=== PATIENT | male | born 1975 | race African-American/Black ===

== ENCOUNTER 2017-06-20 10:07 | Emergency (ER) | payer SELFPAY ==
[2017-06-20] VITALS (12 sets, daily range): BP systolic 131–165; BP diastolic 77–102
[~2017-06-20] VITALS: Ht 177.8 cm; Wt 99.8 kg
[2017-06-20] MEDS ORDERED: UNOBMED (10:08)
[2017-06-20] MEDS ORDERED: LORazepam Inj 2mg/ml 1ml ONE (10:15)
[2017-06-20] MEDS ORDERED: LORazepam Inj 2mg/ml 1ml IM ONE (10:15)
[2017-06-20] MEDS ORDERED: Haloperidol 5mg/ml Inj ONE (10:49)
[2017-06-20] MEDS ORDERED: DiphenhydrAMINE 50mg/ml Inj ONE (10:49)
[2017-06-20] MEDS ORDERED: DiphenhydrAMINE 50mg/ml Inj IM ONE (11:00)
[2017-06-20] MEDS ORDERED: Haloperidol 5mg/ml Inj IM ONE (11:00)
[2017-06-20 11:50] LABS: BASOPHILS % (AUTO) 0.8 % (0.0-2.0); EOSINOPHILS % (AUTO) 0.1 % (0.0-3.0); LYMPHOCYTES % (AUTO) 8.2 % (20.0-45.0); MEAN CORPUSCULAR HEMOGLOBIN 30.6 PG (27.0-31.0); MEAN CORPUSCULAR HGB CONC 32.7 G/DL (32.0-36.0); MEAN CORPUSCULAR VOLUME 94 FL (80-99); MEAN PLATELET VOLUME 8.1 FL (6.5-10.1); MONOCYTES % (AUTO) 6.3 % (1.0-10.0); NEUTROPHILS % (AUTO) 84.7 % (45.0-75.0); PLATELET COUNT 179 K/UL (150-450); RED CELL DISTRIBUTION WIDTH 13.3 % (11.6-14.8); WHITE BLOOD COUNT 13.2 K/UL (4.8-10.8)
[2017-06-20 12:04] LABS: ACETAMINOPHEN < 10 ug/mL (10-30); ALANINE AMINOTRANSFERASE 21 U/L (3-41); ALBUMIN/GLOBULIN RATIO 1.5 (1.0-2.7); ALCOHOL < 10 mg/dL; ANION GAP 15 (5-15); ASPARTATE AMINO TRANSFERASE 37 U/L (5-40); CALCIUM 9.1 mg/dL (8.6-10.2); CARBON DIOXIDE 23 mEQ/L (20-30); CHLORIDE 108 mEQ/L (98-107); CREATININE 1.4 mg/dL (0.7-1.2); GLOMERULAR FILTRATION RATE > 60 mL/min (>60); HEMOLYSIS 13; POTASSIUM 3.8 mEQ/L (3.4-4.9); SODIUM 146 mEQ/L (135-145); TROPONIN I < 0.30 ng/mL (<=0.30)
[2017-06-20 12:14] LABS: CKMB 9.5 ng/mL (< 6.7)
--- NOTE | 2017-06-20 18:23 | Emergency Room Report ---
History of Present Illness General Chief Complaint: Behavioral Complaint Present Illness Allergies: Coded Allergies: UNABLE TO ASSESS (Unverified , 06/20/17) Nursing Documentation-[facility] Past Medical History Deferred: Pt Cognitively Impaired Physical Exam Vital Signs Date Time Temp Pulse Resp B/P (MAP) Pulse Ox O2 Delivery O2 Flow Rate FiO2 06/20/17 09:54 98.1 126 18 128/90 94 Room Air Medical Decision Making Diagnostic Impression: Primary Impression: Substance abuse ER Course Received signout from Dr khan at 2pm Utox + for multiple drugs Required sedation by previous ER MD Also rhabdo with YOMAIRA Was given IVF hydration Patient ate sandwich, ambulating with steady gait DC home Last Vital Signs Date Time Temp Pulse Resp B/P (MAP) Pulse Ox O2 Delivery O2 Flow Rate FiO2 06/20/17 17:42 79 14 138/83 97 Room Air 06/20/17 11:51 98.1 Status: improved Disposition: HOME, SELF-CARE Condition: Stable Patient Instructions: Stimulant Use Disorder-Cocaine FRED RODRIGUEZ M.D. Jun 20, 2017 18:23
--- NOTE | 2017-06-21 07:00 | Emergency Room Report ---
History of Present Illness General Chief Complaint: Behavioral Complaint Source: Patient Present Illness HPI 41-year-old male presents ED for evaluation. Per EMS patient was found on the street. Agitated and combative. Patient had a "crack pipe" next him. Upon arrival patient is agitated, tachycardic. Screaming and yelling. Unwilling to provide any additional history at this time. No other aggravating or relieving factors. Denies any other associated symptoms . Allergies: Coded Allergies: UNABLE TO ASSESS (Unverified , 06/20/17) Patient History Past Medical History: none Past Surgical History: none Pertinent Family History: none Social History: Reports: drug use, Denies: smoking, alcohol use Immunizations: UTD Reviewed Nursing Documentation: PMH: Agreed, PSxH: Agreed Nursing Documentation-PMH Past Medical History Deferred: Pt Cognitively Impaired Review of Systems All Other Systems: negative except mentioned in HPI Physical Exam Vital Signs Date Time Temp Pulse Resp B/P (MAP) Pulse Ox O2 Delivery O2 Flow Rate FiO2 06/20/17 09:54 98.1 126 18 128/90 94 Room Air Sp02 EP Interpretation: reviewed, normal General Appearance: no apparent distress, alert, GCS 15, non-toxic Head: normocephalic, atraumatic Eyes: bilateral eye normal inspection, bilateral eye PERRL ENT: hearing grossly normal, normal pharynx, no angioedema, normal voice Neck: full range of motion, supple/symm/no masses Respiratory: chest non-tender, lungs clear, normal breath sounds, speaking full sentences Cardiovascular #1: regular rate, rhythm, no edema Cardiovascular #2: 2+ carotid (R), 2+ carotid (L), 2+ radial (R), 2+ radial (L) , 2+ dorsalis pedis (R), 2+ dorsalis pedis (L) Gastrointestinal: normal bowel sounds, non tender, soft, non-distended, no guarding, no rebound Rectal: deferred Genitourinary: normal inspection, no CVA tenderness Musculoskeletal: back normal, gait/station normal, normal range of motion, non- tender Neurologic: alert, motor strength/tone normal, sensory intact, speech normal Psychiatric: other - agitated/combative Reflexes: 3+ bicep (R), 3+ bicep (L), 3+ tricep (R), 3+ tricep (L), 3+ knee (R) , 3+ knee (L) Skin: normal color, no rash, warm/dry, well hydrated Lymphatic: no adenopathy Medical Decision Making Diagnostic Impression: Primary Impression: Substance abuse Additional Impression: Rhabdomyolysis Qualified Codes: M62.82 - Rhabdomyolysis ER Course Hospital Course 41-year-old M presents to ED with altered mental status. Active aggressively, in police custody Differential diagnoses include: Psychosis, EtOH, drug abuse Clinical course patient placed on stretcher. On manager monitoring. After initial history and physical ordered labs, IV fluids Patient is initially agitated and combative. Patient sedated with Haldol/Ativan /Benadryl. Labs reviewed- Cr 1.4, no leukocytosis, hemoglobin/hematocrit stable, CK > 2000 , tox panel + for multilple substances Patient given IV hydration. Allowed to sleep. Patient will be discharged upon sobriety i. I feel this is a highly complex case requiring extensive working including EKG/Rhythm strip, Xray/CT/US, Blood/urine lab work, repeat exams while in ED, and administration of strong opiates/narcotics for pain control, admission to hospital or close patient follow up. Diagnosis -drug abuse, rhabdomyolysis Stable and discharged to home. Followup with PMD. Return to ED if symptoms recur or worsen Labs Test 06/20/17 11:20 White Blood Count 13.2 K/UL (4.8-10.8) Red Blood Count 5.20 M/UL (4.70-6.10) Hemoglobin 15.9 G/DL (14.2-18.0) Hematocrit 48.7 % (42.0-52.0) Mean Corpuscular Volume 94 FL (80-99) Mean Corpuscular Hemoglobin 30.6 PG (27.0-31.0) Mean Corpuscular Hemoglobin Concent 32.7 G/DL (32.0-36.0) Red Cell Distribution Width 13.3 % (11.6-14.8) Platelet Count 179 K/UL (150-450) Mean Platelet Volume 8.1 FL (6.5-10.1) Neutrophils (%) (Auto) 84.7 % (45.0-75.0) Lymphocytes (%) (Auto) 8.2 % (20.0-45.0) Monocytes (%) (Auto) 6.3 % (1.0-10.0) Eosinophils (%) (Auto) 0.1 % (0.0-3.0) Basophils (%) (Auto) 0.8 % (0.0-2.0) Sodium Level 146 mEQ/L (135-145) Potassium Level 3.8 mEQ/L (3.4-4.9) Chloride Level 108 mEQ/L (98-107) Carbon Dioxide Level 23 mEQ/L (20-30) Anion Gap 15 (5-15) Blood Urea Nitrogen 16 mg/dL (7-23) Creatinine 1.4 mg/dL (0.7-1.2) Estimat Glomerular Filtration Rate > 60 mL/min (>60) Glucose Level 112 mg/dL (74-106) Calcium Level 9.1 mg/dL (8.6-10.2) Total Bilirubin 0.9 mg/dL (0.0-1.2) Aspartate Amino Transf (AST/SGOT) 37 U/L (5-40) Alanine Aminotransferase (ALT/SGPT) 21 U/L (3-41) Alkaline Phosphatase 84 U/L (40-129) Total Creatine Kinase 2300 U/L (38-174) Creatine Kinase MB 9.5 ng/mL (< 6.7) Creatine Kinase MB Relative Index 0.4 Troponin I < 0.30 ng/mL (<=0.30) Total Protein 7.0 g/dL (6.6-8.7) Albumin 4.2 g/dL (3.5-5.2) Globulin 2.8 g/dL Albumin/Globulin Ratio 1.5 (1.0-2.7) Salicylates Level < 1 mg/dL (10-30) Urine Opiates Screen Negative (NEGATIVE) Acetaminophen Level < 10 ug/mL (10-30) Urine Barbiturates Screen Negative (NEGATIVE) Phencyclidine (PCP) Screen Positive (NEGATIVE) Urine Amphetamines Screen Negative (NEGATIVE) Urine Benzodiazepines Screen Negative (NEGATIVE) Urine Cocaine Screen Positive (NEGATIVE) Urine Marijuana (THC) Screen Positive (NEGATIVE) Serum Alcohol < 10 mg/dL Last Vital Signs Date Time Temp Pulse Resp B/P (MAP) Pulse Ox O2 Delivery O2 Flow Rate FiO2 06/20/17 21:50 98.1 81 14 135/80 97 Room Air Status: improved Disposition: HOME, SELF-CARE Condition: Stable Patient Instructions: Stimulant Use Disorder-Cocaine MITCH NORIEGA M.D. Jun 21, 2017 07:00
== END 2017-06-20 21:50 | disposition home or self-care (01) ==
LOC: EDBD 10:07 → EMR 11:10
DX: M62.82 Rhabdomyolysis (principal); F14.10 Cocaine abuse, uncomplicated; F19.10 Other psychoactive substance abuse, uncomplicated
CPT/HCPCS: 36415; 80053; 80300; 82550; 82553; 84484; 85025; 96360; 96361; 96372; 99284; G0480; J1200; J1630; 80329